=== PATIENT | male | born 1980 | race Caucasian/White ===

== ENCOUNTER 2020-08-28 21:49 | Emergency (ER) | payer SELFPAY ==
[~2020-08-28] VITALS: Ht 173 cm; Wt 77.0 kg
[2020-08-28 21:52] VITALS: BP 121/99
[2020-08-28] MEDS ORDERED: TETANUS,DIPTH,PERTUSS P/F (BOOSTRIX) 0.5 ML VIAL IM ONE (22:00)
[2020-08-28] MEDS ORDERED: LACTATED RINGERS 1,000 ML IV ONE (22:00)
--- NOTE | 2020-08-28 22:15 | NUR ---
THIS RN DISCUSSED FINANCIAL ASSISTANCE WITH PATIENT, BECAUSE HE STATED HE COULDN'T AFFORD ANYTHING WE WERE GOING TO DO. PT STATED HE WANTED TO LEAVE AGAINST MEDICAL ADVICE, BECAUSE HE CAN'T AFFORD IT. PT REFUSED TO GET ANY IMAGING DONE.
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
== END 2020-08-28 22:15 | disposition left against medical advice (07) ==
LOC: EDUNIT# 21:49 → ER 21:50
DX: S80.02XA Contusion of left knee, initial encounter (principal); S80.01XA Contusion of right knee, initial encounter; R40.2410 Glasgow coma scale score 13-15, unspecified time; V69.49XA Driver of heavy transport vehicle injured in collision with other motor vehicles in traffic accident, initial encounter
CPT/HCPCS: 90471

== ENCOUNTER → 2020-09-18 | Outpatient (CLI) | payer OTHER ==
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
== END ==
LOC: RAD 15:12
PROVIDERS: ATTEND Orthopaedic Surgery Sports Medicine
DX: S83.242A Other tear of medial meniscus, current injury, left knee, initial encounter (principal); S83.282A Other tear of lateral meniscus, current injury, left knee, initial encounter; S83.522A Sprain of posterior cruciate ligament of left knee, initial encounter; M25.462 Effusion, left knee; S70.12XA Contusion of left thigh, initial encounter; S80.02XA Contusion of left knee, initial encounter; M76.52 Patellar tendinitis, left knee
CPT/HCPCS: 73721